=== PATIENT | female | born 1970 | race Caucasian/White ===

== ENCOUNTER 2016-06-10 15:07 | Emergency (ER) | payer OTHER ==
--- NOTE | 2016-06-10 15:19 | EDM.PDOC ---
ED HPI Skin/Rash - General Chief Complaint: Skin Complaint Stated Complaint: FEELING ILL Time Seen by Provider: 06/10/16 15:15 Source: Reports: Patient History Limitations: Reports: No limitations - History of Present Illness INITIAL COMMENTS - FREE TEXT/NARRATIVE: HISTORY AND PHYSICAL: History of present illness: [Patient comes to the emergency room complaining of a swollen sore lesion on her right buttocks. Has been present for the past 2 days. She's a type II diabetic and takes metformin. Blood sugar today was 123. She routinely checks once daily. She has felt weak and shaky on and off today. Lives in [place], but is on her way to [place], by car, with her to a . Was traveling today, when her buttocks became more tender and she was unable to sit any longer. She has had some clear to bloody colored drainage from the abscess.] Review of systems: As per history of present illness and below otherwise all systems reviewed and negative. Past medical history: As per history of present illness and as reviewed below otherwise noncontributory. Surgical history: As per history of present illness and as reviewed below otherwise noncontributory. Social history: No reported history of drug or alcohol abuse. Family history: As per history of present illness and as reviewed below otherwise noncontributory. Physical exam: HEENT: Atraumatic, normocephalic. Oral mucous membranes are pink and moist. Lungs: Clear to auscultation, breath sounds equal bilaterally, chest nontender. Heart: S1S2, regular rate and rhythm. Abdomen: Obese, Soft, nondistended, nontender. Pelvis: Stable nontender. Genitourinary: Deferred. Rectal: Deferred. Skin: 8 cm x 8 cm area of erythema present to right upper buttock at the edge of the gluteal fold. Central induration is 2.5 x 2.5 cm. Abscess is nonfluctuant. Area is cleansed and prepped with Betadine. Is anesthetized with 10 mL of 1% lidocaine. Abscess is incised with a 15 blade and expressed. 1 cm incision is made resulting in expression of sero-sanguinous fluid. No culture taken. Iodoform gauze is packed into the wound with tail secured with tape. A 4 x 4 gauze taped to area of abscess. Patient tolerated without any difficulties. Extremities: Atraumatic. Neurovascular unremarkable. Neuro: Awake, alert, oriented. Motor and sensory unremarkable throughout. Exam nonfocal. Diagnostics: [CBC, CMP, lactic acid] Impression: [Right buttock Abscess] Plan: [Rxd for clindamycin 300 mg #28 sig one by mouth every 6 hours for 7 days zero refills. discussed with patient that she should keep gauze in place until tomorrow morning and may shower normally. When wound closes apply triple antibiotic ointment and Band-Aid as needed questions are answered and concerns are addressed.] Definitive disposition and diagnosis as appropriate pending reevaluation and review of above. - Related Data Allergies Allergy/AdvReac Type Severity Reaction Status Date / Time Sulfa (Sulfonamide Allergy Cannot Verified 06/10/16 15:18 Antibiotics) Remember Home Meds: Ambulatory Orders Medication Instructions Recorded Confirmed Enalapril [Vasotec] 10 mg PO BID 06/10/16 06/10/16 metFORMIN [Glucophage XR] 500 mg PO DAILY 06/10/16 06/10/16 ED ROS GENERAL - Review of Systems Review Of Systems: ROS reveals no pertinent complaints other than HPI. ED EXAM, SKIN/RASH Exam: See Below Course - Vital Signs Last Recorded V/S: Last Vital Signs Temp 98.4 F 06/10/16 16:34 Pulse 97 06/10/16 16:34 Resp 18 06/10/16 16:34 BP 146/75 H 06/10/16 16:34 Pulse Ox 18 L 06/10/16 16:34 - Orders/Labs/Meds Labs: Laboratory Tests 06/10/16 06/10/16 06/10/16 Range/Units 15:21 15:36 15:36 WBC 13.03 H (4.0-11.0) K/uL RBC 4.47 (4.30-5.90) M/uL Hgb 12.9 (12.0-16.0) g/dL Hct 41.0 (36.0-46.0) % MCV 91.7 (80.0-98.0) fL MCH 28.9 (27.0-32.0) pg MCHC 31.5 (31.0-37.0) g/dL RDW Std Deviation 41.5 (28.0-62.0) fl RDW Coeff of Elsy 12 (11.0-15.0) % Plt Count 229 (150-400) K/uL MPV 11.60 (7.40-12.00) fL Neut % (Auto) 73.5 (48.0-80.0) % Lymph % (Auto) 15.7 L (16.0-40.0) % [place] % (Auto) 9.5 (0.0-15.0) % Eos % (Auto) 1.1 (0.0-7.0) % Baso % (Auto) 0.2 (0.0-1.5) % Neut # 9.6 H (1.4-5.7) K/uL Lymph # 2.1 (0.6-2.4) K/uL [place] # 1.2 H (0.0-0.8) K/uL Eos # 0.1 (0.0-0.7) K/uL Baso # 0.0 (0.0-0.1) K/uL Nucleated RBC % 0.0 /100WBC Nucleated RBCs # 0 K/uL Lactate (0.20-2.00) mmol/L Sodium 137 (136-146) mmol/L Potassium 4.3 (3.5-5.1) mmol/L Chloride 103 (98-110) mmol/L Carbon Dioxide 24 (21-31) mmol/L BUN 9 (6.0-23.0) mg/dL Creatinine 1.0 (0.6-1.5) mg/dL Est Cr Clr Drug Dosing 73.46 mL/min Estimated GFR (MDRD) 59.7 ml/min Glucose 111 H (60-110) mg/dL POC Glucose 97 (60-110) mg/dL Calcium 9.9 (8.8-10.8) mg/dL Total Bilirubin 0.5 (0.1-1.5) mg/dL AST 12 (5-40) IU/L ALT 11 (8-54) IU/L Alkaline Phosphatase 68 (40-150) Total Protein 8.2 H (6.0-8.0) g/dL Albumin 4.4 (3.5-5.0) g/dL Globulin 3.8 H (2.0-3.5) g/dL Albumin/Globulin Ratio 1.2 L (1.3-2.8) 06/10/16 Range/Units 15:55 WBC (4.0-11.0) K/uL RBC (4.30-5.90) M/uL Hgb (12.0-16.0) g/dL Hct (36.0-46.0) % MCV (80.0-98.0) fL MCH (27.0-32.0) pg MCHC (31.0-37.0) g/dL RDW Std Deviation (28.0-62.0) fl RDW Coeff of Elsy (11.0-15.0) % Plt Count (150-400) K/uL MPV (7.40-12.00) fL Neut % (Auto) (48.0-80.0) % Lymph % (Auto) (16.0-40.0) % [place] % (Auto) (0.0-15.0) % Eos % (Auto) (0.0-7.0) % Baso % (Auto) (0.0-1.5) % Neut # (1.4-5.7) K/uL Lymph # (0.6-2.4) K/uL [place] # (0.0-0.8) K/uL Eos # (0.0-0.7) K/uL Baso # (0.0-0.1) K/uL Nucleated RBC % /100WBC Nucleated RBCs # K/uL Lactate 1.5 (0.20-2.00) mmol/L Sodium (136-146) mmol/L Potassium (3.5-5.1) mmol/L Chloride (98-110) mmol/L Carbon Dioxide (21-31) mmol/L BUN (6.0-23.0) mg/dL Creatinine (0.6-1.5) mg/dL Est Cr Clr Drug Dosing mL/min Estimated GFR (MDRD) ml/min Glucose (60-110) mg/dL POC Glucose (60-110) mg/dL Calcium (8.8-10.8) mg/dL Total Bilirubin (0.1-1.5) mg/dL AST (5-40) IU/L ALT (8-54) IU/L Alkaline Phosphatase (40-150) Total Protein (6.0-8.0) g/dL Albumin (3.5-5.0) g/dL Globulin (2.0-3.5) g/dL Albumin/Globulin Ratio (1.3-2.8) Meds: Medications Discontinued Medications Generic Name Dose Route Start Last Admin Trade Name Joshua PRN Reason Stop Dose Admin Lidocaine HCl 20 ml 06/10/16 15:49 06/10/16 16:05 Xylocaine 1% INJECT 06/10/16 15:50 10 ml ONETIME ONE Administration Departure - Departure Time of Disposition: 16:20 Disposition: Home, Self-Care 01 Condition: good Clinical Impression: Abscess Instructions: Abscess, [id number] Referrals: PCP,Unknown [Primary Care Provider] - Forms: ED Department Discharge Additional Instructions: The following information is given to patients seen in the emergency department who are being discharged to home. This information is to outline your options for follow-up care. We provide all patients seen in our emergency department with a follow-up referral. The need for follow-up, as well as the timing and circumstances, are variable depending upon the specifics of your emergency department visit. If you don't have a primary care physician on staff, we will provide you with a referral. We always advise you to contact your personal physician following an emergency department visit to inform them of the circumstance of the visit and for follow-up with them and/or the need for any referrals to a consulting specialist. The emergency department will also refer you to a specialist when appropriate. This referral assures that you have the opportunity for follow-up care with a specialist. All of these measure are taken in an effort to provide you with optimal care, which includes your follow-up. Under all circumstances we always encourage you to contact your private physician who remains a resource for coordinating your care. When calling for follow-up care, please make the office aware that this follow-up is from your recent emergency room visit. If for any reason you are refused follow-up, please contact the [facility] emergency department at and asked to speak to the emergency department charge nurse. [facility] [address] [place] [id number] Followup with her local primary care provider in 48-72 hours. Take antibiotics exactly as prescribed. Tylenol or ibuprofen as needed for discomfort. Keep area clean and dry follow up with your primary care provider when you're home. Return to ER as needed and as discussed.
[2016-06-10] MEDS ORDERED: Lidocaine 1% 20 ML MDV INJECT ONE (15:49)
[2016-06-10 16:46] VITALS: BP 146/75
== END 2016-06-10 16:34 | disposition home or self-care (01) ==
LOC: MW.ED 15:07
DX: L02.31 Cutaneous abscess of buttock (principal); Z88.2 Allergy status to sulfonamides; Z79.899 Other long term (current) drug therapy
CPT/HCPCS: 10061; 36415; 80053; 82962; 83605; 85025; 99283